=== PATIENT | female | born 1995 | race Caucasian/White ===

== ENCOUNTER 2023-10-23 22:47 | Emergency (ER) | payer OTHER, SELFPAY ==
[2023-10-23 23:02] VITALS: BP 115/79
[2023-10-23 23:34] VITALS: BMI 19.8
[2023-10-23 23:40] VITALS: BP 111/68
[2023-10-24 00:03] LABS: % Basophils 0.4 % (0-2); % Eosinophils 2.5 % (0-6); % Immature Granulocytes 0.2 % (0-0.5); % Lymphocytes 40.8 % (20.5-51.1); % Monocytes 9.9 % (1.7-9.3); % Neutrophils 46.2 % (42.2-75.2); Absolute Eosinophils 0.1 10^3/uL (0-0.7); Absolute Lymphocytes 2.2 10^3/uL (1.2-3.4); Absolute Monocytes 0.5 10^3/uL (0.1-0.6); Absolute Neutrophils 2.4 10^3/uL (1.4-6.5); Hematocrit 35.6 % (37.0-47.0); Hemoglobin 12.1 g/dL (12.0-16.0); Mean Corpuscular Hgb 29.7 pg (27.0-31.0); Mean Corpuscular Volume 87.3 fL (81.0-99.0); Mean Platelet Volume 9.5 fL (7.4-10.4); Nucleated Red Blood Cells % 0 %; Platelet Count 325 10^3/uL (130-400); Red Blood Cell Count 4.08 10^6/uL (4.20-5.40); Red Cell Dist. Width 14.9 % (11.5-14.5); White Blood Cell Count 5.3 10^3/uL (4.8-10.8)
[2023-10-24 00:16] LABS: ALT (SGPT) 13 U/L (0-35); AST (SGOT) 19 U/L (14-36); Albumin 4.6 g/dl (3.5-5.0); Alkaline Phosphatase 44 U/L (38-126); Blood Urea Nitrogen 13 mg/dl (7-17); Calcium 9.2 mg/dl (8.4-10.2); Carbon Dioxide 25 mmol/L (22-30); Chloride 105 mmol/L (98-107); Estimated Creatinine Clearance 89 ml/min; Glucose 100 mg/dl (70-99); Potassium 4.2 mmol/L (3.5-5.1); Sodium 136 mmol/L (135-145); Total Bilirubin 0.2 mg/dl (0.2-1.3); Total Protein 7.9 g/dl (6.3-8.2); eGFR > 60.00
[2023-10-24 00:29] LABS: Troponin I < 0.012 ng/ml
[2023-10-24 00:31] VITALS: BP 115/66
--- NOTE | 2023-10-24 00:37 | ED.GENMED ---
History of Present Illness
General
Chief Complaint: Chest Pain
Source: patient
Exam Limitations: none
Time Seen by Provider: 10/24/23 00:07
Nursing documentation reviewed up to this point in time: agreed with
Travel History
Have you had any contact with someone who has COVID-19?: No
Do you have any symptoms of coronavirus? Fever > 100 degrees, chills, cough, shortness of breath, sore throat, loss of taste or smell, muscle aches, or headache?: No
History of Present Illness
History of Present Illness:
Patient presents to ED secondary to intermittent chest pain since last night. Chest pain described as 'discomfort' and 'stabbing', associated with left arm tingling sensation tonight. Denies any alleviating or exacerbating factors. Denies
associated shortness of breath, nausea, vomiting, or diaphoresis. Denies trauma. Denies recent injury. Denies leg pain or swelling. Denies back pain. Denies recent travel or surgery. Denies family history of early heart disease or blood clots.
Of note, patient was started on control pill 5 days ago, secondary to heavy menstrual cycle bleeding.
Review of Systems
Review of Systems
Allergies reviewed?: Yes
All Other Systems: ROS reviewed and negative except as documented in HPI and ROS
Constitutional: Reports no symptoms
EENT: Reports no symptoms
Respiratory: Reports no symptoms
Cardiac: Reports chest pain
ABD/GI: Reports no symptoms
: Reports no symptoms
Musculoskeletal: Reports no symptoms
Skin: Reports no symptoms
Neurological: Reports no symptoms
Phy Exam
Physical Exam
Physical Exam:
Physical Exam
General: no apparent distress, not acutely ill. afebrile
Head: nc/at. eomi
Neck: supple. no meningeal signs.
Heart: s1/s2 regular rate and rhythm, no murmur. equal radial pulses.
Lungs: no acute respiratory distress. clear bilaterally. chest wall nontender to palpation.
Abdomen: normal bowel sounds. not tender.
Neuro: alert and oriented. no focal neurological deficits
Skin: no rash
Psychiatric: well kept. interactive and cooperative
Extremities: no edema. no calf tenderness. mild tenderness to palpation over left A-C joint, without swelling/erythema/ecchymosis.
Scores
Heart Score for Chest Pain Patients
STEMI patient?: No
History: Slightly or Non-Suspicious
ECG: Normal
Age: </= 45 years
Risk Factors: No Risk Factors
Troponin: </= Normal Limit
Heart Score for Chest Pain Patients: 0
Heart Score Risk: 2.5% MACE over next 6 weeks
Course
Orders/Labs/Results
Orders:
Orders
10/23/23 23:08
Electrocardiogram (*1) Urgent
Reason for Study: Chest Pain
Cardiology Consult: Unknown
10/23/23 23:09
EKG- Treatment ONCE
10/23/23 23:49
Complete Blood Count/With Diff Urgent
Comprehensive Metabolic Panel Urgent
Troponin I Urgent
10/24/23 00:24
CR Chest - 2 Views Urgent
Comment:
Reason For Exam: chest pain
10/24/23 00:27
D-Dimer Urgent
Abnormal Lab Results
10/23/23
23:49
RBC 4.08 L 10^6/uL
(4.20-5.40)
Hct 35.6 L %
(37.0-47.0)
RDW 14.9 H %
(11.5-14.5)
Monocytes % 9.9 H %
(1.7-9.3)
Glucose 100 H mg/dl
(70-99)
10/23/23 23:49
10/23/23 23:49
Vital Signs
Initial and Last Documented VS:
Initial Vital Signs
Temp Pulse Resp BP Pulse Ox
97.8 F 78 20 115/79 98
10/23/23 23:02 10/23/23 23:02 10/23/23 23:02 10/23/23 23:02 10/23/23 23:02
Last Documented Vital Signs
Temp Pulse Resp BP Pulse Ox
97.8 F 74 15 115/66 99
10/23/23 23:02 10/24/23 00:31 10/24/23 00:31 10/24/23 00:31 10/24/23 00:31
MDM/Problems Addressed
MDM/Problems Addressed:
History and exam inconsistent with acute coronary syndrome. Symptoms likely either viral versus musculoskeletal in etiology. Patient will be discharged home in stable condition with recommendation to take Tylenol/Motrin for symptomatic relief,
along with PCP follow-up as an outpatient.
*Critical Care Note
Total Time (30-74mins, 75-104mins- exclusive of procedures): Not Applicable
ED Attending Note
-
Portions of this chart may have been created with voice recognition software.� Occasional wrong word or��sound alike� substitutions may have occurred due to the inherent limitations of voice recognition software.
Discharge Plan
Departure
Patient Disposition: Home (Routine Discharge)
Date of Disposition: 10/24/23
Time of Disposition: 01:46
Patient with high blood pressure during this ER visit?: No
Discharge Problem:
Chest pain
Instructions: Chest Pain PCP Follow Up
Prescriptions:
No Action
ferrous sulfate 325 mg (65 mg iron) tablet
325 mg PO Q OTHER DAY Qty: 30 0RF
Referrals:
Leon Solo CRNP [Family Provider] -
Activity Restrictions/Additional Instructions:
As discussed, please follow-up with your primary care physician with any further concerns.
Interventions
Interventions:
*Risk Screen - Suicide Last Done: 10/23/23 23:02
*General Assessment Last Done: 10/23/23 23:02
*Neglect/Abuse Screening Last Done: 10/23/23 23:02
ED- Fall Risk Assessment Last Done: 10/23/23 23:02
*ED COVID-19 Vaccine History Last Done: 10/23/23 23:02
ED- Cardiac Assessment Last Done: 10/23/23 23:34
[2023-10-24 00:49] LABS: D-Dimer 0.37 ug/mlFEU (0.00-0.50)
[2023-10-24 01:00] VITALS: BP 109/68
== END 2023-10-24 02:00 | disposition home or self-care (01) ==
LOC: EMR 22:47
PROVIDERS: Emergency Medicine; EMERGENCY PHYSICIAN Emergency Medicine; FAMILY PHYSICIAN Nurse Practitioner Family
DX: R07.89 Other chest pain (principal); R20.2 Paresthesia of skin
CPT/HCPCS: 99285; 71046; 80053; 84484; 85025; 85379; 93005

== ENCOUNTER 2025-02-13 16:17 | Emergency (ER) | payer OTHER, SELFPAY ==
[2025-02-13 16:22] VITALS: BP 117/81
[2025-02-13 17:01] LABS: Hematocrit 36.6 % (37.0-47.0); Hemoglobin 11.8 g/dL (12.0-16.0); Mean Corp Hgb Conc. 32.2 g/dL (33.0-37.0); Mean Corpuscular Volume 85.1 fL (81.0-99.0); Nucleated Red Blood Cells % 0 %; Platelet Count 345 10^3/uL (130-400); Red Cell Dist. Width 14.0 % (11.5-14.5)
[2025-02-13 17:24] LABS: ALT (SGPT) 12 U/L (0-35); AST (SGOT) 19 U/L (14-36); Albumin 4.6 g/dl (3.5-5.0); Alkaline Phosphatase 44 U/L (38-126); Blood Urea Nitrogen 11 mg/dl (7-17); Calcium 9.2 mg/dl (8.4-10.2); Carbon Dioxide 25 mmol/L (22-30); Chloride 106 mmol/L (98-107); Glucose 107 mg/dl (70-99); Potassium 4.1 mmol/L (3.5-5.1); Sodium 140 mmol/L (135-145); Total Protein 7.9 g/dl (6.3-8.2); eGFR > 60.00
--- NOTE | 2025-02-13 20:25 | ED.GENMED ---
History of Present Illness
General
Chief Complaint: Dizziness
Source: patient and family
Time Seen by Provider: 02/13/25 19:56
History of Present Illness
History of Present Illness:
This patient is a 29-year-old female who presents emergency department accompanied by her mother. She has been having intermittent episodes of dizziness and bilateral tingling in her hands for approximately 3 weeks. In contrast to triage note,
patient denies numbness and more so describes it as a tingling sensation. She got concerned today because she had what felt like a 'panic attack'. This was at a prior out approximately 2 PM today. She describes it as feeling lightheaded like she
might pass out, her head feels light and she feels like she cannot breathe and she feels very anxious. This lasted a few minutes and then gradually resolved when she sat on the edge of the bed near a fan. However, she says in general that she just
feels like she cannot really think fully, and has intermittent episodes of feeling like her head is heavy. Currently she says she is feels Trembley and anxious. She denies chest pain or pressure, change in vision, change in speech, abdominal pain,
nausea, vomiting, focal weakness, fall, or other complaints. Of note, patient was started on a new antidepressant approximately 3 weeks ago but she stopped it after few days because she noticed that the symptoms developed at about the same time.
Past History
Past History
ED Past Medical History: Psychiatric and Other (Celiac disease, anemia)
ED Past Surgical History: Other (Oral surgery)
Social History
Tobacco: Non-smoker
Alcohol: None
Drug: None
Personal: Single
Living: with family
Phy Exam
Physical Exam
Physical Exam:
GENERAL: Alert , in no apparent distress
EYE: pupils equal and reactive, no photophobia, EOMI, no nystagmus
NECK: Supple, no significant adenopathy.
ENT: o/p clr, mmm.
CARDIAC: Regular rate and rhythm .
LUNGS: Clear breath sounds bilaterally, no acute respiratory distress, no wheezes/rales/rhonchi
ABDOMEN: Soft, without focal tenderness, no r/g, no cvat
NEUROLOGICAL: Alert and oriented, no focal neuro deficits, normal gait, negative Romberg, [id number] normal, motor 5 out of 5, sensory intact, cranial nerves II through XII intact
SKIN: Warm and dry, skin intact.
MUSCULOSKELETAL: No edema, well perfused.
PSYCH: Normal and appropriate interaction although does appear to be slightly anxious
Course
Orders/Labs/Results
Orders:
Orders
02/13/25 16:25
Electrocardiogram (*1) Urgent
Reason for Study: Vertigo / Dizzy
EKG- Treatment ONCE
02/13/25 16:41
Complete Blood Count/With Diff Urgent
Comprehensive Metabolic Panel Urgent
TSH Reflex To Free T4 Urgent
02/13/25 20:24
CT Head W/o Iv Contrast Urgent
Comment:
Reason For Exam: dizzy, heavy head
Abnormal Lab Results
02/13/25
16:41
Hgb 11.8 L g/dL
(12.0-16.0)
Hct 36.6 L %
(37.0-47.0)
MCHC 32.2 L g/dL
(33.0-37.0)
Absolute Monos (auto) 0.7 H 10^3/uL
(0.1-0.6)
Monocytes % 11.1 H %
(1.7-9.3)
Glucose 107 H mg/dl
(70-99)
02/13/25 16:41
02/13/25 16:41
Vital Signs
Initial and Last Documented VS:
Initial Vital Signs
Temp Pulse Resp BP Pulse Ox
98.5 F 109 18 117/81 100
02/13/25 16:22 02/13/25 16:22 02/13/25 16:22 02/13/25 16:22 02/13/25 16:22
Last Documented Vital Signs
Temp Pulse Resp BP Pulse Ox
98.5 F 109 18 117/81 100
02/13/25 16:22 02/13/25 16:22 02/13/25 16:22 02/13/25 16:22 02/13/25 20:26
*Pulse Oximetry
SaO2: 100
Oxygen Mode of Delivery: Room air
Update Note
Update Note:
Patient presents to the Emergency Department with __dizziness, tingling in hands, etc.
Number and Complexity of Problems Addressed at the Encounter
� Chronic conditions affecting care:
� Acute Exacerbation and/or Progression of Chronic Illness:
� Differential Diagnosis includes: But not limited to medication effect, anxiety/depression, electrolyte disorder, severe anemia, etc. etc.
Amount and/or Complexity of Data to be Reviewed and Analyzed
� I performed an independent evaluation of and my interpretation is:
EKG: Read by me, sinus tachycardia, normal axis, incomplete right bundle, no acute ischemia
CT:
Xrays:
Laboratory Studies: Mild anemia noted otherwise labs generally unremarkable
Other:
� Review of other/old records reveals:
� Clinical information was obtained by an independent historian: Mother who is bedside that that that she states that Scheduled an MRI for her based on the symptoms but the appointment is not until April
� Prescriptions/Medications Considered but not given:
� Further testing considered but not performed:
Risk of Complications and/or Morbidity or Mortality of Patient Management
� Social determinants of health affecting care:
� Discussion with other providers (PCP, Hospitalists, Consultants, etc):
� Escalation of care including admission/observation vs risk of discharge considered:Pt remains stable here. I did discuss with her the importance of continued workup for her symptoms as an outpatient promptly. I have not
determined a specific etiology for her symptoms but have not identified a serious cause with workup here. She remains neurologically intact. Discussed with her and her family importance of follow-up and reasons to return to the ER.
ED Attending Note
-
Portions of this chart may have been created with voice recognition software.� Occasional wrong word or��sound alike� substitutions may have occurred due to the inherent limitations of voice recognition software.
Discharge Plan
Departure
Patient Disposition: Home (Routine Discharge)
Date of Disposition: 02/13/25
Time of Disposition: 22:28
Patient with high blood pressure during this ER visit?: Yes
Condition: Good
Discharge Problem:
Dizziness
Instructions: Dizziness, BLOOD PRESSURE
Prescriptions:
No Action
ferrous sulfate 325 mg (65 mg iron) tablet
325 mg PO Q OTHER DAY Qty: 30 0RF
Referrals:
UNKNOWN - PT DOES,NOT KNOW [Unknown Provider]
Activity Restrictions/Additional Instructions:
PLEASE CALL MRI SCHEDULING TOMORROW TO TRY TO MOVE YOUR APPOINTMENT UP. PLEASE SPEAK WITH YOUR DOCTOR TOMORROW REGARDING YOUR VISIT TODAY AND ARRANGEMENTS FOR PROMPT FOLLOW-UP. IF YOU DEVELOP FEVER, NUMBNESS, WEAKNESS, VISUAL CHANGES, CHEST PAIN,
GET WORSE, DO NOT GET BETTER, OR OTHER WORRISOME SIGNS, PLEASE RETURN TO THE ER IMMEDIATELY!
Interventions
Interventions:
*Risk Screen - Suicide Last Done: 02/13/25 16:22
*General Assessment Last Done: 02/13/25 16:22
*Neglect/Abuse Screening Last Done: 02/13/25 16:22
*ED- Fall Risk Assessment Last Done: 02/13/25 20:01
*ED COVID-19 Vaccine History Last Done: 02/13/25 20:01
ED- Neurological Assessment Last Done: 02/13/25 20:01
ED Swallowing Screen Last Done: 02/13/25 20:01
Discharge Date and Time
Print Language: ITALIAN
== END 2025-02-13 22:51 | disposition home or self-care (01) ==
LOC: EMR 16:17
PROVIDERS: Emergency Medicine; EMERGENCY PHYSICIAN Emergency Medicine; FAMILY PHYSICIAN Nurse Practitioner Family
DX: R42 Dizziness and giddiness (principal); R20.2 Paresthesia of skin; F41.9 Anxiety disorder, unspecified; R03.0 Elevated blood-pressure reading, without diagnosis of hypertension; K90.0 Celiac disease; D64.9 Anemia, unspecified; Z91.018 Allergy to other foods; Z91.048 Other nonmedicinal substance allergy status
CPT/HCPCS: 99284; 70450; 80053; 84443; 85025; 93005